=== PATIENT | female | born 2000 | race Hispanic/Latino ===

== ENCOUNTER 2019-05-20 17:01 | Emergency (ER) | payer OTHER | END 2019-05-20 17:58 | disposition home or self-care (01) | LOC: EDH 17:01 | DX: L73.9 Follicular disorder, unspecified (principal); K21.9 Gastro-esophageal reflux disease without esophagitis; M79.7 Fibromyalgia; J45.909 Unspecified asthma, uncomplicated; M19.90 Unspecified osteoarthritis, unspecified site; F90.9 Attention-deficit hyperactivity disorder, unspecified type; F41.9 Anxiety disorder, unspecified; F32.9 Major depressive disorder, single episode, unspecified; Z98.890 Other specified postprocedural states; Z88.8 Allergy status to other drugs, medicaments and biological substances ==

== ENCOUNTER 2019-12-14 22:57 | Emergency (ER) | payer OTHER ==
[2019-12-15 00:50] LABS: RAPID GROUP A STREP NEGATIVE (NEGATIVE)
== END 2019-12-15 01:29 | disposition home or self-care (01) ==
LOC: EDH 22:57
DX: F41.1 Generalized anxiety disorder (principal); J45.909 Unspecified asthma, uncomplicated; K21.9 Gastro-esophageal reflux disease without esophagitis; M79.7 Fibromyalgia; F90.9 Attention-deficit hyperactivity disorder, unspecified type; M19.90 Unspecified osteoarthritis, unspecified site; E07.9 Disorder of thyroid, unspecified; Z98.890 Other specified postprocedural states
CPT/HCPCS: 71046; 81025; 87804; 87880; 93005

== ENCOUNTER 2020-10-17 01:18 | Emergency (ER) | payer OTHER ==
[2020-10-17] MEDS ORDERED: DOXYCYCLINE HYCLATE 100 MG TABLET PO ONE (01:56)
[2020-10-17 02:08] LABS: APPEARANCE,URINE Cloudy (CLEAR); BILIRUBIN,URINE Negative (NEGATIVE); COLOR,URINE Yellow (YELLOW); GLUCOSE, URINE (UA) Negative (NEGATIVE); KETONES,URINE Negative (NEGATIVE); LEUKOCYTE ESTERASE ,URINE Negative (NEGATIVE); NITRATE,URINE Negative (NEGATIVE); OCCULT BLOOD,URINE Nonhemolyzed Trace (NEGATIVE); PH,URINE 6.5 (5.0-8.0); PROTEIN,URINE Negative (NEGATIVE)
[2020-10-17 02:17] LABS: BACTERIA,URINE None Seen /HPF (None Seen); RBC,URINE None Seen /HPF (0-1); WBC,URINE None Seen /HPF (0-1)
== END 2020-10-17 02:29 | disposition home or self-care (01) ==
LOC: EDH 01:18
DX: L73.2 Hidradenitis suppurativa (principal); L08.89 Other specified local infections of the skin and subcutaneous tissue; J45.909 Unspecified asthma, uncomplicated; F41.9 Anxiety disorder, unspecified; M19.90 Unspecified osteoarthritis, unspecified site; M79.7 Fibromyalgia; F32.9 Major depressive disorder, single episode, unspecified; Z88.8 Allergy status to other drugs, medicaments and biological substances; Z98.890 Other specified postprocedural states
CPT/HCPCS: 36415; 81001; 81025

== ENCOUNTER 2022-07-06 03:28 | Emergency (ER) | payer OTHER ==
[~2022-07-06] VITALS: Ht 144.8 cm; Wt 85.7 kg
[~2022-07-06 03:28] MED LIST: AMOX500C2 PO; BENZ-39 PO; PRED20TA3 PO
[2022-07-06 03:39] VITALS: BP 105/68
[2022-07-06] MEDS ORDERED: TOBR5DRO48 OP (03:55)
[2022-07-06] MEDS ORDERED: BENZ-39 PO (03:55)
== END 2022-07-06 04:24 | disposition home or self-care (01) ==
LOC: EDH 03:30
DX: B34.9 Viral infection, unspecified (principal); H10.9 Unspecified conjunctivitis; J45.909 Unspecified asthma, uncomplicated; K21.9 Gastro-esophageal reflux disease without esophagitis; M19.90 Unspecified osteoarthritis, unspecified site; Z79.52 Long term (current) use of systemic steroids

== ENCOUNTER 2022-08-03 21:52 | Emergency (ER) | payer OTHER ==
[~2022-08-03] VITALS: Ht 147.3 cm; Wt 84.4 kg
[~2022-08-03 21:52] MED LIST changes: +TOBR5DRO48 OP
[2022-08-03] MEDS: ONDANSETRON ODT 4MG TAB ONE (23:34)
[2022-08-03] MEDS: ONDANSETRON ODT 4MG TAB SL ONE (23:34)
[2022-08-03] MEDS: IBUPROFEN 200 MG TAB ONE (23:34)
[2022-08-03] MEDS: IBUPROFEN 600 MG TABLET PO ONE (23:34)
[2022-08-04] MEDS ORDERED: IBUP-2070 PO (00:08)
[2022-08-04 00:30] VITALS: BP 108/69
== END 2022-08-04 00:42 | disposition home or self-care (01) ==
LOC: EDH 21:52
DX: S09.90XA Unspecified injury of head, initial encounter (principal); F41.9 Anxiety disorder, unspecified; J45.909 Unspecified asthma, uncomplicated; F32.A Depression, unspecified; E05.90 Thyrotoxicosis, unspecified without thyrotoxic crisis or storm; Z98.890 Other specified postprocedural states; Z79.899 Other long term (current) drug therapy; W01.0XXA Fall on same level from slipping, tripping and stumbling without subsequent striking against object, initial encounter; Y93.89 Activity, other specified; Y92.89 Other specified places as the place of occurrence of the external cause; Y99.8 Other external cause status
CPT/HCPCS: 70450

== ENCOUNTER 2023-06-26 17:24 | Emergency (ER) | payer BC, OTHER ==
[~2023-06-26] VITALS: Ht 149.9 cm; Wt 86.6 kg
[~2023-06-26 17:24] MED LIST changes: +IBUP-2070 PO
[2023-06-26 17:28] VITALS: BP 111/65; PULSE 98; RESP 17
[2023-06-26] MEDS ORDERED: CLIN-141 PO ×2 (19:27→19:42)
== END 2023-06-26 19:37 | disposition home or self-care (01) ==
LOC: EDH 17:24
DX: R21 Rash and other nonspecific skin eruption (principal); J45.909 Unspecified asthma, uncomplicated; M19.90 Unspecified osteoarthritis, unspecified site; M79.7 Fibromyalgia; F32.A Depression, unspecified; F41.9 Anxiety disorder, unspecified

== ENCOUNTER 2023-12-30 01:30 | Emergency (ER) | payer BC ==
[~2023-12-30] VITALS: Ht 149.9 cm; Wt 89.4 kg
[~2023-12-30 01:30] MED LIST changes: +CLIN-141 PO
[2023-12-30 01:48] LABS: APPEARANCE,URINE CLOUDY (CLEAR); BILIRUBIN,URINE NEGATIVE (NEGATIVE); COLOR,URINE LIGHT-YELLOW (YELLOW); GLUCOSE, URINE (UA) NEGATIVE (NEGATIVE); KETONES,URINE NEGATIVE (NEGATIVE); LEUKOCYTE ESTERASE ,URINE NEGATIVE Leu/uL (NEGATIVE); NITRATE,URINE NEGATIVE (NEGATIVE); OCCULT BLOOD,URINE NEGATIVE (NEGATIVE); PH,URINE 6.5 (5.0-8.0); PROTEIN,URINE NEGATIVE (NEGATIVE); UROBILINOGEN,URINE 0.2 mg/dL (0.2-1.0)
[2023-12-30 01:50] LABS: ADD UA MICROSCOPIC YES
[2023-12-30 02:02] LABS: MUCUS,URINE RARE LPF (None Seen); SQUAMOUS EPITHELIAL CELL,UR FEW /HPF (0-2)
[2023-12-30] MEDS ORDERED: AMOX-427 PO (03:05)
[2023-12-30] MEDS ORDERED: IBUP-1493 PO (03:05)
[2023-12-30] MEDS: AMOX/CLAV 875/125MG TAB PO ONE (03:16)
[2023-12-30] MEDS: KETOROLAC 60 MG VIAL (30MG/ML) IM ONE (03:16)
[2023-12-30] MEDS: FAMOTIDINE 20MG TAB PO ONE (03:16)
[2023-12-30 03:42] VITALS: BP 92/52; PULSE 102; RESP 16; O2SAT 100
== END 2023-12-30 03:44 | disposition home or self-care (01) ==
LOC: EDH 01:30
DX: L73.9 Follicular disorder, unspecified (principal); M79.7 Fibromyalgia; M19.90 Unspecified osteoarthritis, unspecified site; J45.909 Unspecified asthma, uncomplicated; Z79.899 Other long term (current) drug therapy; Z90.89 Acquired absence of other organs; Z98.890 Other specified postprocedural states
CPT/HCPCS: 99284; 81001; 81025; 96372; J1885

== ENCOUNTER 2024-02-01 11:13 | Emergency (ER) | payer BC ==
[~2024-02-01] VITALS: Ht 149.9 cm; Wt 88.9 kg
[~2024-02-01 11:13] MED LIST changes: +AMOX-427 PO; +IBUP-1493 PO
[2024-02-01 12:33] LABS: BASOPHILS # (AUTO) 0.04 K/uL (0.00-0.20); BASOPHILS % (AUTO) 0.6 % (0.0-5.0); EOSINOPHILS # (AUTO) 0.14 K/uL (0.00-0.70); EOSINOPHILS % (AUTO) 2.1 % (0.0-8.0); HEMATOCRIT 38.3 % (36-48); IMMATURE GRANULOCYTE ABSOLUTE 0.02 K/uL (0-1); LYMPHOCYTES # (AUTO) 1.7 K/uL (1.0-4.8); LYMPHOCYTES % (AUTO) 25.1 % (21.0-51.0); MEAN CORPUSCULAR HEMOGLOBIN 25.1 pg (27.0-33.0); MEAN CORPUSCULAR HGB CONC 31.9 g/dL (32.0-36.0); MEAN CORPUSCULAR VOLUME 78.8 fL (79-99); MONOCYTES # (AUTO) 0.3 K/uL (0.1-1.0); MONOCYTES % (AUTO) 4.6 % (3.0-13.0); NEUTROPHILS # (AUTO) 4.5 K/uL (1.8-7.7); NEUTROPHILS % (AUTO) 67.3 % (40.0-77.0); PLATELET COUNT (AUTO) 391 K/uL (130-400); RED BLOOD CELL COUNT(AUTO) 4.86 MIL/uL (4.00-5.50); RED CELL DISTRIBUTION WIDTH 14.2 % (11.0-15.5); WHITE BLOOD COUNT (AUTO) 6.7 K/uL (4.8-10.8)
[2024-02-01 12:35] LABS: ADD UA MICROSCOPIC YES; APPEARANCE,URINE CLOUDY (CLEAR); BILIRUBIN,URINE NEGATIVE (NEGATIVE); COLOR,URINE LIGHT-YELLOW (YELLOW); GLUCOSE, URINE (UA) NEGATIVE (NEGATIVE); KETONES,URINE NEGATIVE (NEGATIVE); LEUKOCYTE ESTERASE ,URINE 75 Leu/uL (NEGATIVE); NITRATE,URINE NEGATIVE (NEGATIVE); PROTEIN,URINE NEGATIVE (NEGATIVE); UROBILINOGEN,URINE 0.2 mg/dL (0.2-1.0)
[2024-02-01] MEDS: KETOROLAC 15MG/ML VIAL (15MG/ML) IV ONE (12:39)
[2024-02-01 12:40] LABS: BACTERIA,URINE FEW /HPF (None Seen); MUCUS,URINE RARE LPF (None Seen); SQUAMOUS EPITHELIAL CELL,UR MANY /HPF (0-2)
[2024-02-01] MEDS: 0.9%NACL 1000ML 1,000 ML IV ONE (12:40)
[2024-02-01] MEDS: DiphenhydrAMINE HCL 50 MG/ML VIAL IV ONE (12:40)
[2024-02-01] MEDS: PROCHLORPERAZINE 10MG/2ML INJ IV ONE (12:40)
[2024-02-01 12:41] LABS: CREATININE 0.5 mg/dL (0.5-1.0); HCG,QUALITATIVE URINE NEGATIVE (NEGATIVE); MAGNESIUM 1.8 mg/dL (1.80-2.40); POTASSIUM 4.2 mmol/L (3.5-5.1)
[2024-02-01] MEDS ORDERED: NITR100C PO (12:47)
[2024-02-01] MEDS ORDERED: ONDA4TAB10 PO (12:47)
[2024-02-01] MEDS: CEFTRIAXONE 1G VIAL IVPB ONE (12:53)
[2024-02-01 13:28] VITALS: BP 100/67; PULSE 79; RESP 12; O2SAT 99
[2024-02-01 13:30] LABS: SARS-CoV-2, RNA, NAAT NEGATIVE SARS CoV-2 (NEGATIVE)
[2024-02-01 13:32] LABS: INFLUENZA TYPE A Negative For Type A (NEGATIVE); INFLUENZA TYPE B Negative For Type B (NEGATIVE)
== END 2024-02-01 13:33 | disposition home or self-care (01) ==
LOC: EDH 11:13
DX: N39.0 Urinary tract infection, site not specified (principal); Z20.822 Contact with and (suspected) exposure to COVID-19
CPT/HCPCS: 99284; 96365; 96375; 87635; 83735; 80048; 85025; 87088; 87804 ×2; 81001; 81025; 36415; J1200; J0780; J0696; J1885

== ENCOUNTER 2024-09-06 00:41 | Emergency (ER) | payer BC ==
[~2024-09-06] VITALS: Ht 147.3 cm; Wt 90.3 kg
[~2024-09-06 00:41] MED LIST changes: +NITR100C PO; +ONDA-243 PO
[2024-09-06 01:01] VITALS: BP 128/83; PULSE 90; RESP 20; TEMP 97.3; O2SAT 99
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
== END 2024-09-06 01:14 | disposition home or self-care (01) ==
LOC: EDH 00:41
DX: H65.91 Unspecified nonsuppurative otitis media, right ear (principal); J45.909 Unspecified asthma, uncomplicated; M19.90 Unspecified osteoarthritis, unspecified site; M79.7 Fibromyalgia; Z79.899 Other long term (current) drug therapy
CPT/HCPCS: 99282

== ENCOUNTER 2025-08-17 23:20 | Emergency (ER) | payer BC ==
[~2025-08-17] VITALS: Ht 147.3 cm; Wt 89.8 kg
[~2025-08-17 23:20] MED LIST changes: +IBUP-1492 PO; -IBUP-2070 PO
[2025-08-17 23:35] VITALS: BP 119/76; PULSE 109; RESP 20; TEMP 98.3
--- NOTE | 2025-08-17 23:35 | NUR ---
PATIENT TAKEN TO CT WITH ED RN
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
[2025-08-17] MEDS ORDERED: ACET-66 PO (23:59)
[2025-08-17] MEDS ORDERED: IBUP-1492 PO (23:59)
--- NOTE | 2025-08-18 | NUR ---
DEEPTI BACK FROM CT AT THIS TIME WITH ED RN
--- NOTE | 2025-08-18 00:01 | HMCIMG ---
EXAM: CT Cervical Spine Without IV Contrast CLINICAL HISTORY: Trauma. TECHNIQUE: Thin collimated axial CT images of the cervical spine were obtained with sagittal and coronal reformatted images also submitted. CT scan done according to ALARA (As Low As Reasonably Achievable). CONTRAST: None. COMPARISON: None provided. FINDINGS: No acute fracture. Mild straightening of the expected cervical lordosis reflects paraspinal muscle spasm. Anterior marginal osteophytes at the C5-C6 level. Posterior disc osteophyte complex bulge at C7-T1 and T1-T2, indenting the anterior thecal sac. Normal vertebral body and disc heights. Normal bone density. The surrounding soft tissues are unremarkable. No neural foraminal, lateral recess or spinal canal stenosis. IMPRESSIONS: No acute fracture. Mild straightening of the expected cervical lordosis reflects paraspinal muscle spasm. /[place]
--- NOTE | 2025-08-18 00:02 | HMCIMG ---
EXAM: Non-contrast CT examination of the Brain CLINICAL HISTORY: Trauma. TECHNIQUE: Thin collimated axial CT images of the brain were obtained with sagittal and coronal reformatted images also submitted. CT scan is done according to ALARA (As Low as Reasonably Achievable). CONTRAST USED: None. COMPARISON: None provided. FINDINGS: No acute intracranial abnormality is present. No acute cortical infarction, hemorrhage, mass, or mass effect. No hydrocephalus or abnormal extra-axial fluid collections. The posterior fossa is unremarkable. The skull base and calvarium are intact. The included portions of the paranasal sinuses and mastoid air cells are clear. IMPRESSION: No acute intracranial abnormality is present. /[place]
--- NOTE | 2025-08-18 00:06 | HMCIMG ---
EXAM: CT Thoracic Spine Without IV Contrast. CLINICAL HISTORY: Fall. Trauma. TECHNIQUE: Spiral axial CT images through the thoracic spine were acquired, reconstructed in axial and sagittal projections, and imaged using soft tissue and bone algorithms. Reformatted/MPR images were performed. A CT scan is done according to ALARA (As Low as Reasonably Achievable). CONTRAST: None. COMPARISON: None provided. FINDINGS: The cervicothoracic and thoracolumbar junction is intact. No acute fracture. Normal thoracic curvature. Normal vertebral body and disc heights. Mild thoracic spondylosis with multilevel small marginal osteophytes. Normal bone density. The prevertebral and paravertebral soft tissues are within normal limits. IMPRESSION: No acute fracture. /[place]
[2025-08-18] MEDS: CYCLOBENZAPRINE HCL 10 MG TABLET PO ONE (00:40)
== END 2025-08-18 01:00 | disposition home or self-care (01) ==
LOC: EDH 23:20
DX: S00.83XA Contusion of other part of head, initial encounter (principal); R21 Rash and other nonspecific skin eruption; J45.909 Unspecified asthma, uncomplicated; Z87.19 Personal history of other diseases of the digestive system; Z79.899 Other long term (current) drug therapy; V29.888A Rider (driver) (passenger) of other motorcycle injured in other specified transport accidents, initial encounter; Y93.89 Activity, other specified; Y92.89 Other specified places as the place of occurrence of the external cause; Y99.8 Other external cause status
CPT/HCPCS: 99285; 70450; 72125; 72128; 96374; J2270